=== PATIENT | male | born 1990 | race African-American/Black ===

== ENCOUNTER → 2020-03-29 | Outpatient (CLI) | payer MEDICAID | END | disposition home or self-care (01) | LOC: RD 08:46 | DX: R13.10 Dysphagia, unspecified (principal) ==

== ENCOUNTER → 2020-04-12 | Outpatient (CLI) | payer MEDICAID ==
[2020-04-12 17:26] LABS: BILIRUBIN DIRECT 0.1 mg/dL (0.0-0.2); BILIRUBIN TOTAL 0.48 mg/dL (0.20-1.00)
== END ==
LOC: LB 15:41
PROC: BW40ZZZ Ultrasonography of Abdomen (ICD-10-PCS; principal; 2020-04-12)
DX: R10.11 Right upper quadrant pain (principal)